=== PATIENT | male | born 2000 | race Two or more races ===

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

== ENCOUNTER 2021-03-26 01:20 | Emergency (ER) | payer OTHER ==
[~2021-03-26] VITALS: Ht 180.3 cm; Wt 77.1 kg
[2021-03-26] MEDS ORDERED: DUI500 PO (03:32)
== END 2021-03-26 03:50 ==
LOC: EMR PED 01:20
DX: S50.311A Abrasion of right elbow, initial encounter (principal); X58.XXXA Exposure to other specified factors, initial encounter; Y93.89 Activity, other specified; Y92.89 Other specified places as the place of occurrence of the external cause

== ENCOUNTER 2022-05-24 16:25 | Emergency (ER) | payer OTHER ==
[~2022-05-24] VITALS: Ht 180.3 cm; Wt 74.8 kg
[~2022-05-24 16:25] MED LIST changes: +DUI500 PO
== END 2022-05-24 21:08 | disposition home or self-care (01) ==
LOC: ER 16:25
DX: J10.1 Influenza due to other identified influenza virus with other respiratory manifestations (principal)

== ENCOUNTER 2022-12-10 12:05 | Emergency (ER) | payer OTHER ==
[~2022-12-10] VITALS: Ht 177.8 cm; Wt 67.6 kg
[2022-12-10] MEDS ORDERED: BACTRIM DS TAB1 EACH PO (14:43)
== END 2022-12-10 14:53 | disposition home or self-care (01) ==
LOC: ER 12:05
DX: L02.214 Cutaneous abscess of groin (principal)

== ENCOUNTER 2023-04-04 19:14 | Emergency (ER) | payer OTHER ==
[~2023-04-04] VITALS: Ht 175.3 cm; Wt 68.5 kg
[~2023-04-04 19:14] MED LIST changes: +BACTRIM DS TAB1 EACH PO
== END 2023-04-04 21:33 | disposition home or self-care (01) ==
LOC: ER 19:14
DX: I88.9 Nonspecific lymphadenitis, unspecified (principal)

== ENCOUNTER 2024-02-10 22:36 | Emergency (ER) | payer OTHER ==
[~2024-02-10] VITALS: Ht 180.3 cm; Wt 70.3 kg
[~2024-02-10 22:36] MED LIST changes: +NASAL MIST126 ML
[2024-02-10] MEDS ORDERED: DEXAMETHASONE 4 MG TABLET PO STA (23:30)
[2024-02-11] MEDS ORDERED: DEXAMETHASONE SODIUM PHOSPHATE 4 MG/ML VIAL IM STA (00:02)
== END 2024-02-11 00:56 | disposition home or self-care (01) ==
LOC: ER 22:37
DX: T14.8XXA Other injury of unspecified body region, initial encounter (principal); V49.9XXA Car occupant (driver) (passenger) injured in unspecified traffic accident, initial encounter; Y93.89 Activity, other specified; Y92.413 State road as the place of occurrence of the external cause; Y99.9 Unspecified external cause status